=== PATIENT | male | born 1945 | race African-American/Black ===

== ENCOUNTER 2025-07-28 16:42 | Inpatient (IN) | payer MEDICARE, BC ==
[~2025-07-28] VITALS: Ht 170.2 cm; Wt 81.2 kg
[~2025-07-28 16:42] MED LIST: LISINOPRIL
[2025-07-28 16:44] VITALS: PULSE 144; RESP 18; O2SAT 100
[2025-07-28] MEDS ORDERED: MIDAZOLAM 100MG/100ML PMX 100 ML IV PRN (17:00)
[2025-07-28] MEDS ORDERED: VANCOMYCIN 1000MG/250ML 250 ML IV SCH (17:00)
[2025-07-28] MEDS: SODIUM CHLORIDE 0.9% 1,000 ML IV ONE ×3 (17:02→17:40)
[2025-07-28] MEDS: DILTIAZEM HCL 5MG/ML 5ML VIAL IV ONE (17:02)
[2025-07-28] MEDS: MIDAZOLAM 100MG/100ML PMX 100 ML IV PRN (17:15)
[2025-07-28] MEDS: LABETALOL 5MG/ML 4ML INJ IV ONE (17:38)
[2025-07-28] MEDS: PIPERACILLIN/TAZO 3.375G/50ML 50 ML IV SCH (17:40)
[2025-07-28] MEDS: VANCOMYCIN 1G PREMIX 200 ML IV SCH (17:55)
[2025-07-28 18:11] LABS: BG BASE EXCESS -9.0 mmol/L (-2.0-3.0); BG CARBOXYHEMOGLOBIN 0.3 % (0.5-1.5); BG DEOXYHEMOGLOBIN 0.3 % (0.0-5.0); BG FRACTION INSPIRED OXYGEN 100; BG HCO3 ACT 16.0 mmol/L (21.0-28.0); BG METHEMOGLOBIN 0.6 % (0.5-1.5); BG OXYGEN SATURATION 99.7 % (94.0-98.0); BG OXYHEMOGLOBIN 98.8 % (94.0-98.0); BG PCO2 31.7 mmHg (35.0-48.0); BG PEEP (cmH2O) 0 cmH2O; BG PH 7.320 (7.350-7.450); BG PO2 511.6 mmHg (83.0-108.0); BG SAMPLE SITE LEFT BRACHIAL; BG TIDAL VOLUME(mL) 500.0 mL; BG TOTAL HEMOGLOBIN 11.4 g/dL (13.5-17.5); BG VENT MODE VENT - AC; BG VENT RATE 18.0 set
[2025-07-28 18:39] LABS: BASOPHILS % 0.2 % (0.0-2.0); EOSINOPHILS % 0.2 % (0.0-5.0); HEMATOCRIT. 32.7 % (42.0-52.0); HEMOGLOBIN. 10.8 g/dL (14.0-18.0); LYMPHOCYTES % 12.1 % (20.0-50.0); MEAN PLATELET VOLUME 9.5 fl (7.4-10.4); MONOCYTES % 7.9 % (2.0-8.0); NEUTROPHILS % 79.6 % (40.0-76.0); PLATELET 222 x1000/uL (130-400); RED BLOOD CELL COUNT 3.38 mill/uL (4.7-6.1); RED CELL DISTRIBUTION WIDTH 14.6 % (11.6-14.6)
[2025-07-28 18:58] LABS: UREA NITROGEN BLOOD 76 mg/dL (9-23)
[2025-07-28 19:00] LABS: ASPARTATE AMINOTRANSFERASE 30 IU/L (<34)
[2025-07-28 19:01] LABS: BILIRUBIN DIRECT 0.1 mg/dL (<=3.0); BILIRUBIN TOTAL 0.5 mg/dL (0.1-1.0); PROTEIN TOTAL 6.4 g/dL (6.0-8.3)
[2025-07-28 19:02] LABS: CREATININE 10.4 mg/dL (0.6-1.3); T4 FREE 1.08 ng/dL (0.89-1.76)
[2025-07-28 19:03] LABS: TROPONIN I HIGH SENSITIVITY 1337 ng/L (3.0-53)
[2025-07-28] MEDS: KCL 10MEQ/50ML PREMIX 50 ML IV SCH ×2 (19:24→20:47)
[2025-07-28 20:07] VITALS: PULSE 70; RESP 20; O2SAT 99
[2025-07-28] MEDS: ENOXAPARIN 80MG/0.8ML SYR SUBCUT ONE (20:48)
[2025-07-28 22:08] VITALS: PULSE 87; RESP 16; O2SAT 99
[2025-07-28] MEDS ORDERED: IOHEXOL-350 100 ML BOTTLE ONE (23:08)
[2025-07-29] VITALS (70 sets, daily range): BP systolic 98–201; BP diastolic 69–158; PULSE 74–106; RESP 12–26; TEMP 36.5–37.3632; O2SAT 97–100
[2025-07-29] MEDS ORDERED: DIPHENHYDRAMINE 50MG/ML VIAL IV PRN (01:45)
[2025-07-29] MEDS ORDERED: ACETAMINOPHEN 650MG/20.3ML UDC GT PRN (01:45)
[2025-07-29] MEDS ORDERED: ONDANSETRON HCL 4MG/2ML INJ IV PRN (01:45)
[2025-07-29] MEDS: DEXT 5%/0.45% NACL 1000ML 1,000 ML IV SCH (03:52)
[2025-07-29] MEDS: MAGNESIUM 2 G PREMIX 50 ML IV SCH (03:52)
[2025-07-29] MEDS: HYDRALAZINE 20MG/ML VIAL IV PRN (03:53)
[2025-07-29] MEDS ORDERED: PROPOFOL 10MG/ML 100ML 100 ML IV PRN (05:30)
[2025-07-29 08:09] LABS: HEMATOCRIT. 33.7 % (42.0-52.0); HEMOGLOBIN. 11.2 g/dL (14.0-18.0); MEAN PLATELET VOLUME 9.1 fl (7.4-10.4); PLATELET 148 x1000/uL (130-400); RED BLOOD CELL COUNT 3.52 mill/uL (4.7-6.1); RED CELL DISTRIBUTION WIDTH 14.9 % (11.6-14.6)
[2025-07-29 08:21] LABS: UREA NITROGEN BLOOD 73 mg/dL (9-23)
[2025-07-29 08:22] LABS: CREATININE 10.7 mg/dL (0.6-1.3)
[2025-07-29] MEDS: NITROGLYCERIN 50MG PREMIX 250 ML IV PRN (08:56)
[2025-07-29 09:02] LABS: *AMPHETAMINES SCREEN URINE NEGATIVE (NEGATIVE); *BARBITURATES SCREEN URINE NEGATIVE (NEGATIVE); *BENZODIAZEPINES SCREEN URINE PRESUMPTIVE POSITIVE (NEGATIVE); *COCAINE SCREEN URINE NEGATIVE (NEGATIVE); CANNABINOID URINE SCREEN NEGATIVE (NEGATIVE); ECSTASY MDMA SCREEN URINE NEGATIVE (NEGATIVE); METHADONE URINE SCREEN NEGATIVE (NEGATIVE); OPIATES URINE SCREEN NEGATIVE (NEGATIVE); PHENCYCLIDINE URINE SCREEN NEGATIVE (NEGATIVE)
[2025-07-29 09:48] LABS: BG BASE EXCESS -8.2 mmol/L (-2.0-3.0); BG CARBOXYHEMOGLOBIN 0.3 % (0.5-1.5); BG DEOXYHEMOGLOBIN 1.5 % (0.0-5.0); BG FRACTION INSPIRED OXYGEN 30; BG HCO3 ACT 14.8 mmol/L (21.0-28.0); BG METHEMOGLOBIN 0.3 % (0.5-1.5); BG OXYGEN SATURATION 98.5 % (94.0-98.0); BG OXYHEMOGLOBIN 97.9 % (94.0-98.0); BG PCO2 23.7 mmHg (35.0-48.0); BG PH 7.413 (7.350-7.450); BG PO2 123.8 mmHg (83.0-108.0); BG SAMPLE SITE RIGHT RADIAL; BG TIDAL VOLUME(mL) 425.0 mL; BG TOTAL HEMOGLOBIN 11.0 g/dL (13.5-17.5); BG VENT MODE VENT - AC; BG VENT RATE 12.0 set
[2025-07-29] MEDS ORDERED: LIDOCAINE HCL 1% 10 MG/ML 10ML VIAL ONE (09:55)
[2025-07-29 11:21] LABS: BAND% 1.0 % (1.0-6.0); LYMPHOCYTES % MANUAL 17.0 % (20.0-50.0); MONOCYTES % MANUAL 15.0 % (2.0-8.0); NEUTROPHILS % MANUAL 67.0 % (45.0-75.0); PLATELET ESTIMATE NORMAL
[2025-07-29] MEDS: AMLODIPINE 5MG TABLET NG SCH (12:42)
[2025-07-29] MEDS: ASPIRIN 81MG TABLET NG SCH (12:42)
[2025-07-29] MEDS: MIDAZOLAM 100MG/100ML PMX 100 ML IV PRN (13:16)
[2025-07-29 17:04] LABS: CLARITY URINE CLOUDY (CLEAR); COLOR URINE YELLOW (YELLOW); GLUCOSE URINE TRACE (NEGATIVE); KETONES URINE NEGATIVE (NEGATIVE); LEUKOCYTE ESTERASE URINE NEGATIVE (NEGATIVE); NITRITE URINE NEGATIVE (NEGATIVE); OCCULT BLOOD URINE 3+ (NEGATIVE); PH URINE 5.5 (4.5-8.0); PROTEIN URINE 4+ (NEGATIVE); SPECIFIC GRAVITY URINE 1.024 (1.005-1.030); UROBILINOGEN URINE 0.2 E.U./dL (0.2-1.0)
[2025-07-29 17:18] LABS: INR 1.3
[2025-07-29 17:38] LABS: WBC URINE TNTC /hpf (0-2)
[2025-07-29 17:39] LABS: BACTERIA URINE 2+; RBC URINE 15-25 /hpf (0-2); SQUAMOUS EPITHELIAL CELL URINE 1+ /lpf (RARE/1+)
[2025-07-29] MEDS: PIPERACILLIN/TAZO 3.375G/50ML 50 ML IV SCH (17:56)
[2025-07-29 18:06] LABS: HEPATITIS A AB IGM NEGATIVE (Negative)
[2025-07-29 18:07] LABS: HEPATITIS B CORE AB IGM NEGATIVE (Negative); HEPATITIS C AB NON REACTIVE (Neg) (Negative)
[2025-07-29] MEDS: ATORVASTATIN CALCIUM 40MG TABLET NG SCH (20:35)
[2025-07-29] MEDS: ENOXAPARIN 80MG/0.8ML SYR SUBCUT SCH (20:35)
[2025-07-30] VITALS (106 sets, daily range): BP systolic 113–185; BP diastolic 69–165; PULSE 61–123; RESP 10–24; TEMP 36.3–37.3; O2SAT 0–100
[2025-07-30 00:52] LABS: BASOPHILS % 0.1 % (0.0-2.0); EOSINOPHILS % 0.0 % (0.0-5.0); HEMATOCRIT. 30.2 % (42.0-52.0); HEMOGLOBIN. 10.0 g/dL (14.0-18.0); LYMPHOCYTES % 9.6 % (20.0-50.0); MEAN PLATELET VOLUME 9.6 fl (7.4-10.4); MONOCYTES % 11.2 % (2.0-8.0); NEUTROPHILS % 79.1 % (40.0-76.0); PLATELET 123 x1000/uL (130-400); RED BLOOD CELL COUNT 3.19 mill/uL (4.7-6.1); RED CELL DISTRIBUTION WIDTH 15.3 % (11.6-14.6)
[2025-07-30 01:08] LABS: UREA NITROGEN BLOOD 46.0 mg/dL (9-23)
[2025-07-30 01:13] LABS: CREATININE 7.1 mg/dL (0.6-1.3)
[2025-07-30 06:45] LABS: BASOPHILS % 0.2 % (0.0-2.0); EOSINOPHILS % 0.0 % (0.0-5.0); HEMATOCRIT. 29.4 % (42.0-52.0); HEMOGLOBIN. 9.8 g/dL (14.0-18.0); LYMPHOCYTES % 10.5 % (20.0-50.0); MEAN PLATELET VOLUME 9.6 fl (7.4-10.4); MONOCYTES % 10.9 % (2.0-8.0); NEUTROPHILS % 78.4 % (40.0-76.0); PLATELET 126 x1000/uL (130-400); RED BLOOD CELL COUNT 3.08 mill/uL (4.7-6.1); RED CELL DISTRIBUTION WIDTH 15.0 % (11.6-14.6)
[2025-07-30 07:03] LABS: TRIGLYCERIDE 120 mg/dL (0-150); UREA NITROGEN BLOOD 46 mg/dL (9-23)
[2025-07-30 07:05] LABS: PHOSPHORUS 3.8 mg/dL (2.5-4.9)
[2025-07-30 07:18] LABS: CREATININE 7.4 mg/dL (0.6-1.3)
[2025-07-30 09:45] LABS: BG BASE EXCESS -4.4 mmol/L (-2.0-3.0); BG CARBOXYHEMOGLOBIN 0.1 % (0.5-1.5); BG DEOXYHEMOGLOBIN 2.1 % (0.0-5.0); BG FRACTION INSPIRED OXYGEN 30; BG HCO3 ACT 17.6 mmol/L (21.0-28.0); BG METHEMOGLOBIN 0.3 % (0.5-1.5); BG OXYGEN SATURATION 97.9 % (94.0-98.0); BG OXYHEMOGLOBIN 97.5 % (94.0-98.0); BG PCO2 23.8 mmHg (35.0-48.0); BG PH 7.487 (7.350-7.450); BG PO2 98.9 mmHg (83.0-108.0); BG SAMPLE SITE RIGHT RADIAL; BG TIDAL VOLUME(mL) 425.0 mL; BG TOTAL HEMOGLOBIN 10.5 g/dL (13.5-17.5); BG VENT MODE VENT - AC; BG VENT RATE 12.0 set
[2025-07-30] MEDS: PANTOPRAZOLE SODIUM 40 MG/VIAL IV SCH (09:55)
[2025-07-30] MEDS: METOPROLOL TARTRATE 50MG TABLET NG SCH (11:47)
[2025-07-30] MEDS: ISOSORBIDE DINITRATE 10MG TABLET NG SCH (12:36)
[2025-07-31] VITALS (97 sets, daily range): BP systolic 123–180; BP diastolic 65–116; PULSE 61–108; RESP 12–30; TEMP 36.1–37.4; O2SAT 99–100
[2025-07-31 06:22] LABS: UREA NITROGEN BLOOD 49 mg/dL (9-23)
[2025-07-31 06:23] LABS: PHOSPHORUS 5.2 mg/dL (2.5-4.9)
[2025-07-31 06:30] LABS: BASOPHILS % 0.2 % (0.0-2.0); EOSINOPHILS % 0.1 % (0.0-5.0); HEMATOCRIT. 26.1 % (42.0-52.0); HEMOGLOBIN. 8.9 g/dL (14.0-18.0); LYMPHOCYTES % 8.7 % (20.0-50.0); MEAN PLATELET VOLUME 9.1 fl (7.4-10.4); MONOCYTES % 9.9 % (2.0-8.0); NEUTROPHILS % 81.1 % (40.0-76.0); PLATELET 121 x1000/uL (130-400); RED BLOOD CELL COUNT 2.79 mill/uL (4.7-6.1); RED CELL DISTRIBUTION WIDTH 14.8 % (11.6-14.6)
[2025-07-31 06:46] LABS: CREATININE 7.7 mg/dL (0.6-1.3)
[2025-07-31 09:31] LABS: BG BASE EXCESS -7.1 mmol/L (-2.0-3.0); BG CARBOXYHEMOGLOBIN 0.3 % (0.5-1.5); BG DEOXYHEMOGLOBIN 1.7 % (0.0-5.0); BG FRACTION INSPIRED OXYGEN 30; BG HCO3 ACT 15.6 mmol/L (21.0-28.0); BG METHEMOGLOBIN 0.4 % (0.5-1.5); BG OXYGEN SATURATION 98.3 % (94.0-98.0); BG OXYHEMOGLOBIN 97.6 % (94.0-98.0); BG PCO2 24.1 mmHg (35.0-48.0); BG PH 7.430 (7.350-7.450); BG PO2 112.8 mmHg (83.0-108.0); BG SAMPLE SITE LEFT RADIAL; BG TIDAL VOLUME(mL) 425.0 mL; BG TOTAL HEMOGLOBIN 11.5 g/dL (13.5-17.5); BG VENT MODE VENT - AC; BG VENT RATE 12.0 set
[2025-07-31] MEDS: ISOSORBIDE DINITRATE 20MG TABLET NG SCH (12:57)
[2025-07-31] MEDS: METOPROLOL TARTRATE 25MG TABLET NG SCH (20:05)
[2025-07-31] MEDS: IPRATROPIUM/ALBUTEROL 0.5-3(2.5)MG/3ML NEB HHN PRN (20:36)
[2025-08-01] VITALS (70 sets, daily range): BP systolic 133–187; BP diastolic 65–107; PULSE 59–86; RESP 10–25; TEMP 36.6–37.1; O2SAT 100
[2025-08-01 06:31] LABS: HEMATOCRIT. 26.8 % (42.0-52.0); HEMOGLOBIN. 9.0 g/dL (14.0-18.0); MEAN PLATELET VOLUME 9.6 fl (7.4-10.4); PLATELET 147 x1000/uL (130-400); RED BLOOD CELL COUNT 2.83 mill/uL (4.7-6.1); RED CELL DISTRIBUTION WIDTH 15.0 % (11.6-14.6)
[2025-08-01 06:55] LABS: UREA NITROGEN BLOOD 31.0 mg/dL (9-23)
[2025-08-01 08:52] LABS: CREATININE 5.1 mg/dL (0.6-1.3)
[2025-08-01 09:24] LABS: BG BASE EXCESS -1.2 mmol/L (-2.0-3.0); BG CARBOXYHEMOGLOBIN 1.3 % (0.5-1.5); BG DEOXYHEMOGLOBIN 1.2 % (0.0-5.0); BG FRACTION INSPIRED OXYGEN 30; BG HCO3 ACT 21.7 mmol/L (21.0-28.0); BG METHEMOGLOBIN 0.4 % (0.5-1.5); BG OXYGEN SATURATION 98.8 % (94.0-98.0); BG OXYHEMOGLOBIN 97.1 % (94.0-98.0); BG PCO2 29.3 mmHg (35.0-48.0); BG PEEP (cmH2O) 0 cmH2O; BG PH 7.487 (7.350-7.450); BG PO2 109.1 mmHg (83.0-108.0); BG SAMPLE SITE LEFT RADIAL; BG TIDAL VOLUME(mL) 425.0 mL; BG TOTAL HEMOGLOBIN 8.9 g/dL (13.5-17.5); BG VENT MODE VENT - AC; BG VENT RATE 12.0 set
[2025-08-01] MEDS: HYDRALAZINE 20MG/ML VIAL IV NR (14:19)
[2025-08-01] MEDS: HYDRALAZINE HCL 25MG TABLET PO SCH (14:21)
[2025-08-01] MEDS: ENOXAPARIN 80MG/0.8ML SYR SUBCUT SCH (20:07)
[2025-08-01 20:39] LABS: LYMPHOCYTES % MANUAL 13.0 % (20.0-50.0); MONOCYTES % MANUAL 12.0 % (2.0-8.0); NEUTROPHILS % MANUAL 75.0 % (45.0-75.0); PLATELET ESTIMATE NORMAL
[2025-08-02] VITALS (78 sets, daily range): BP systolic 121–184; BP diastolic 64–107; PULSE 59–88; RESP 10–24; TEMP 36.3918–36.7; O2SAT 94–100
[2025-08-02 06:41] LABS: HEMATOCRIT. 26.3 % (42.0-52.0); HEMOGLOBIN. 8.7 g/dL (14.0-18.0); MEAN PLATELET VOLUME 9.1 fl (7.4-10.4); PLATELET 162 x1000/uL (130-400); RED BLOOD CELL COUNT 2.69 mill/uL (4.7-6.1); RED CELL DISTRIBUTION WIDTH 15.0 % (11.6-14.6)
[2025-08-02 06:52] LABS: UREA NITROGEN BLOOD 31.0 mg/dL (9-23)
[2025-08-02 07:18] LABS: CREATININE 5.7 mg/dL (0.6-1.3)
[2025-08-02 08:44] LABS: BG BASE EXCESS -3.1 mmol/L (-2.0-3.0); BG CARBOXYHEMOGLOBIN 0.3 % (0.5-1.5); BG DEOXYHEMOGLOBIN 1.5 % (0.0-5.0); BG FRACTION INSPIRED OXYGEN 30; BG HCO3 ACT 19.4 mmol/L (21.0-28.0); BG METHEMOGLOBIN 0.4 % (0.5-1.5); BG OXYGEN SATURATION 98.5 % (94.0-98.0); BG OXYHEMOGLOBIN 97.8 % (94.0-98.0); BG PCO2 26.7 mmHg (35.0-48.0); BG PH 7.480 (7.350-7.450); BG PO2 114.0 mmHg (83.0-108.0); BG SAMPLE SITE LEFT RADIAL; BG TIDAL VOLUME(mL) 425.0 mL; BG TOTAL HEMOGLOBIN 9.8 g/dL (13.5-17.5); BG VENT MODE VENT - AC; BG VENT RATE 12.0 set
[2025-08-02] MEDS: AMLODIPINE 10MG TABLET NG SCH (09:22)
[2025-08-02] MEDS: POTASSIUM CHLORIDE 20MEQ/PACKET GT NR (09:24)
[2025-08-02] MEDS: MINOXIDIL 2.5MG TABLET NG SCH (10:39)
[2025-08-02 12:35] LABS: BG BASE EXCESS -4.4 mmol/L (-2.0-3.0); BG CARBOXYHEMOGLOBIN 0.4 % (0.5-1.5); BG DEOXYHEMOGLOBIN 2.2 % (0.0-5.0); BG FRACTION INSPIRED OXYGEN 30; BG HCO3 ACT 18.4 mmol/L (21.0-28.0); BG METHEMOGLOBIN 0.5 % (0.5-1.5); BG OXYGEN SATURATION 97.8 % (94.0-98.0); BG OXYHEMOGLOBIN 96.9 % (94.0-98.0); BG PCO2 26.1 mmHg (35.0-48.0); BG PEEP (cmH2O) 0 cmH2O; BG PH 7.465 (7.350-7.450); BG PO2 93.3 mmHg (83.0-108.0); BG SAMPLE SITE LEFT RADIAL; BG TOTAL HEMOGLOBIN 9.2 g/dL (13.5-17.5); BG VENT MODE VENT - CPAP
[2025-08-02 14:03] LABS: BAND% 1.0 % (1.0-6.0); EOSINOPHILS % MANUAL 1.0 % (0.0-5.0); LYMPHOCYTES % MANUAL 7.0 % (20.0-50.0); MONOCYTES % MANUAL 6.0 % (2.0-8.0); NEUTROPHILS % MANUAL 85.0 % (45.0-75.0); PLATELET ESTIMATE NORMAL
[2025-08-02] MEDS: HYDRALAZINE HCL 50MG TABLET PO SCH (14:56)
[2025-08-03] VITALS (61 sets, daily range): BP systolic 104–165; BP diastolic 58–116; PULSE 54–81; RESP 0–19; TEMP 36.1–36.6; O2SAT 94–99
[2025-08-03 07:07] LABS: HEMATOCRIT. 27.7 % (42.0-52.0); HEMOGLOBIN. 9.1 g/dL (14.0-18.0); MEAN PLATELET VOLUME 8.9 fl (7.4-10.4); PLATELET 213 x1000/uL (130-400); RED BLOOD CELL COUNT 2.91 mill/uL (4.7-6.1); RED CELL DISTRIBUTION WIDTH 14.7 % (11.6-14.6)
[2025-08-03 07:17] LABS: CREATININE 4.8 mg/dL (0.6-1.3); UREA NITROGEN BLOOD 26.0 mg/dL (9-23)
[2025-08-03] MEDS: ENOXAPARIN 30MG/0.3ML SYR SUBCUT SCH (08:32)
[2025-08-03] MEDS: POTASSIUM CHLORIDE 20MEQ/PACKET PO SCH (08:34)
[2025-08-03 17:02] LABS: LYMPHOCYTES % MANUAL 3.0 % (20.0-50.0); MONOCYTES % MANUAL 5.0 % (2.0-8.0); NEUTROPHILS % MANUAL 92.0 % (45.0-75.0); PLATELET ESTIMATE NORMAL
[2025-08-04] VITALS (100 sets, daily range): BP systolic 87–163; BP diastolic 47–96; PULSE 56–95; RESP 9–25; TEMP 35.8–37.4; O2SAT 95–100
[2025-08-04 08:13] LABS: HEMATOCRIT. 28.4 % (42.0-52.0); HEMOGLOBIN. 9.8 g/dL (14.0-18.0); MEAN PLATELET VOLUME 8.4 fl (7.4-10.4); PLATELET 263 x1000/uL (130-400); RED BLOOD CELL COUNT 3.02 mill/uL (4.7-6.1); RED CELL DISTRIBUTION WIDTH 14.4 % (11.6-14.6)
[2025-08-04 08:35] LABS: UREA NITROGEN BLOOD 33.0 mg/dL (9-23)
[2025-08-04 09:18] LABS: CREATININE 5.5 mg/dL (0.6-1.3)
[2025-08-04 11:03] LABS: BAND% 1.0 % (1.0-6.0); BASOPHILS % MANUAL 1.0 % (0.0-2.0); LYMPHOCYTES % MANUAL 5.0 % (20.0-50.0); MONOCYTES % MANUAL 7.0 % (2.0-8.0); NEUTROPHILS % MANUAL 86.0 % (45.0-75.0)
[2025-08-04 11:04] LABS: PLATELET ESTIMATE NORMAL
[2025-08-04 20:22] LABS: HEMATOCRIT. 29.3 % (42.0-52.0); HEMOGLOBIN. 9.6 g/dL (14.0-18.0); MEAN PLATELET VOLUME 8.2 fl (7.4-10.4); PLATELET 295 x1000/uL (130-400); RED BLOOD CELL COUNT 3.09 mill/uL (4.7-6.1); RED CELL DISTRIBUTION WIDTH 14.9 % (11.6-14.6)
[2025-08-04 20:37] LABS: PHOSPHORUS 4.1 mg/dL (2.5-4.9)
[2025-08-04] MEDS: METOPROLOL TARTRATE 25MG TABLET NG SCH (21:32)
[2025-08-04 23:15] LABS: LYMPHOCYTES % MANUAL 6.0 % (20.0-50.0); MONOCYTES % MANUAL 14.0 % (2.0-8.0); NEUTROPHILS % MANUAL 80.0 % (45.0-75.0); PLATELET ESTIMATE NORMAL
[2025-08-05] VITALS (62 sets, daily range): BP systolic 117–160; BP diastolic 53–73; PULSE 73–95; RESP 9–23; TEMP 36.5–37.3; O2SAT 94–99
[2025-08-05 06:47] LABS: HEMATOCRIT. 27.8 % (42.0-52.0); HEMOGLOBIN. 9.3 g/dL (14.0-18.0); MEAN PLATELET VOLUME 8.1 fl (7.4-10.4); PLATELET 362 x1000/uL (130-400); RED BLOOD CELL COUNT 2.91 mill/uL (4.7-6.1); RED CELL DISTRIBUTION WIDTH 14.6 % (11.6-14.6)
[2025-08-05 07:05] LABS: UREA NITROGEN BLOOD 28 mg/dL (9-23)
[2025-08-05 07:06] LABS: PHOSPHORUS 4.5 mg/dL (2.5-4.9)
[2025-08-05 07:42] LABS: CREATININE 5.3 mg/dL (0.6-1.3)
[2025-08-05] MEDS ORDERED: DORZ10DR32 EACHEYE (09:33)
[2025-08-05] MEDS ORDERED: BRIM10DR18 (09:33)
[2025-08-05 16:46] LABS: LYMPHOCYTES % MANUAL 7.0 % (20.0-50.0); MONOCYTES % MANUAL 10.0 % (2.0-8.0); NEUTROPHILS % MANUAL 83.0 % (45.0-75.0); PLATELET ESTIMATE NORMAL
[2025-08-05] MEDS: CARVEDILOL 3.125 MG TABLET PO SCH (23:45)
[2025-08-06] VITALS: BP 138/60; PULSE 83; RESP 18; TEMP 36.5; O2SAT 99
[2025-08-06 04:00] VITALS: BP 152/69; PULSE 80; RESP 18; TEMP 36.7; O2SAT 98
[2025-08-06 08:00] VITALS: BP_SYST 149; BP_DIAS 6; BP_DIAS 62; PULSE 89; RESP 18; TEMP 37.5; O2SAT 98
[2025-08-06 12:22] VITALS: BP 138/68; PULSE 79; RESP 18; TEMP 36.9; O2SAT 99
[2025-08-06] MEDS: BRIMONIDINE 0.2% OPHTH DROPS 5ML BOTHEYE SCH (12:50)
[2025-08-06] MEDS: DORZOLAM/TIMOLOL 2%/0.5% OPHTH DROPS 10ML BOTHEYE SCH (12:51)
[2025-08-06 13:35] LABS: UREA NITROGEN BLOOD 33.0 mg/dL (9-23)
[2025-08-06 13:37] LABS: PHOSPHORUS 5.3 mg/dL (2.5-4.9)
[2025-08-06 14:19] LABS: CREATININE 6.4 mg/dL (0.6-1.3)
[2025-08-06 16:00] VITALS: BP 133/57; PULSE 80; RESP 18; TEMP 36.6; O2SAT 98
[2025-08-06 20:00] VITALS: BP 158/74; PULSE 79; RESP 20; TEMP 37; O2SAT 98
[2025-08-07] VITALS (11 sets, daily range): BP systolic 127–175; BP diastolic 54–104; PULSE 68–89; RESP 18–20; TEMP 35.8–37; O2SAT 98–99
[2025-08-07 06:24] LABS: UREA NITROGEN BLOOD 41.0 mg/dL (9-23)
[2025-08-07 06:27] LABS: CREATININE 6.7 mg/dL (0.6-1.3)
[2025-08-07 06:37] LABS: HEMATOCRIT. 26.7 % (42.0-52.0); HEMOGLOBIN. 8.9 g/dL (14.0-18.0); MEAN PLATELET VOLUME 7.4 fl (7.4-10.4); PLATELET 459 x1000/uL (130-400); RED BLOOD CELL COUNT 2.80 mill/uL (4.7-6.1); RED CELL DISTRIBUTION WIDTH 14.8 % (11.6-14.6)
[2025-08-07] MEDS: POTASSIUM CHLORIDE 20MEQ/PACKET NG SCH (12:13)
[2025-08-07 19:54] LABS: EOSINOPHILS % MANUAL 2.0 % (0.0-5.0); LYMPHOCYTES % MANUAL 7.0 % (20.0-50.0); MONOCYTES % MANUAL 10.0 % (2.0-8.0); NEUTROPHILS % MANUAL 81.0 % (45.0-75.0); PLATELET ESTIMATE INCREASED
[2025-08-07] MEDS: EPOETIN ALFA-EPBX 4,000 UNITS/ML VIAL SUBCUT SCH (22:17)
[2025-08-08] VITALS: BP 159/92; PULSE 89; RESP 18; TEMP 36.2; O2SAT 98
[2025-08-08 04:00] VITALS: BP 173/62; PULSE 94; RESP 19; TEMP 36.7; O2SAT 96
[2025-08-08 12:00] VITALS: BP 128/75; PULSE 69; RESP 18; TEMP 36.8; O2SAT 96
[2025-08-08] MEDS: KCL 20MEQ/100ML PREMIX 100 ML IV SCH ×2 (14:44→22:20)
[2025-08-08 16:00] VITALS: BP 160/69; PULSE 85; RESP 20; TEMP 36.8; O2SAT 96
[2025-08-08 17:53] LABS: HEPATITIS A AB IGM NEGATIVE (Negative)
[2025-08-08 17:54] LABS: HEPATITIS B CORE AB IGM NEGATIVE (Negative)
[2025-08-08 17:55] LABS: HEPATITIS C AB NON REACTIVE (Neg) (Negative)
[2025-08-08 20:00] VITALS: BP 129/63; PULSE 89; RESP 19; TEMP 36.7; O2SAT 98
[2025-08-09] VITALS (11 sets, daily range): BP systolic 121–175; BP diastolic 60–84; PULSE 66–90; RESP 18–21; TEMP 36–36.9; O2SAT 97–99
[2025-08-09 07:23] LABS: INR 1.0
[2025-08-09 07:35] LABS: BILIRUBIN TOTAL 0.2 mg/dL (0.1-1.0)
[2025-08-09 07:36] LABS: UREA NITROGEN BLOOD 40 mg/dL (9-23)
[2025-08-09 07:37] LABS: BASOPHILS % 0.2 % (0.0-2.0); EOSINOPHILS % 0.5 % (0.0-5.0); HEMATOCRIT. 24.6 % (42.0-52.0); HEMOGLOBIN. 8.3 g/dL (14.0-18.0); LYMPHOCYTES % 7.2 % (20.0-50.0); MEAN PLATELET VOLUME 7.3 fl (7.4-10.4); MONOCYTES % 14.8 % (2.0-8.0); NEUTROPHILS % 77.3 % (40.0-76.0); PLATELET 505 x1000/uL (130-400); RED BLOOD CELL COUNT 2.58 mill/uL (4.7-6.1); RED CELL DISTRIBUTION WIDTH 14.5 % (11.6-14.6)
[2025-08-09 07:38] LABS: ASPARTATE AMINOTRANSFERASE 42 IU/L (<34); BILIRUBIN DIRECT < 0.1 mg/dL (<=3.0); PHOSPHORUS 4.1 mg/dL (2.5-4.9); PROTEIN TOTAL 5.8 g/dL (6.0-8.3)
[2025-08-09 07:48] LABS: FOLIC ACID (FOLATE) SERUM 9.90 ng/mL (>5.38)
[2025-08-09 07:49] LABS: VITAMIN B12 SERUM 1005 pg/mL (211-911)
[2025-08-09 10:12] LABS: CREATININE 6.3 mg/dL (0.6-1.3)
[2025-08-09] MEDS: IRON SUCROSE COMPLEX 100 MG/5 ML ML IV SCH (11:50)
[2025-08-10] VITALS: BP 151/67; PULSE 89; RESP 19; TEMP 36.4; O2SAT 98
[2025-08-10 04:00] VITALS: BP 164/69; PULSE 100; RESP 19; TEMP 36.5; O2SAT 98
[2025-08-10 08:41] VITALS: BP 170/74; PULSE 94; RESP 20; TEMP 37.4; O2SAT 98
[2025-08-10 12:37] VITALS: BP 155/76; PULSE 97; RESP 20; TEMP 36.9; O2SAT 98
[2025-08-10 16:00] VITALS: BP 152/76; PULSE 83; RESP 16; TEMP 36.8; O2SAT 99
[2025-08-10 20:00] VITALS: BP 143/71; PULSE 85; RESP 19; TEMP 36.9; O2SAT 94
[2025-08-11] VITALS (9 sets, daily range): BP systolic 122–170; BP diastolic 66–85; PULSE 68–92; RESP 16–20; TEMP 36.114–37.2; O2SAT 97–100
[2025-08-11] MEDS: CEFAZOLIN 1000MG PREMIX 50 ML IV SCH (10:00)
[2025-08-11] MEDS: IRON SUCROSE COMPLEX 100 MG/5 ML ML IV SCH (14:08)
[2025-08-12] VITALS: BP 143/72; PULSE 89; RESP 16; TEMP 36.8; O2SAT 99
[2025-08-12 04:00] VITALS: BP 150/80; PULSE 90; RESP 16; TEMP 36.9; O2SAT 99
[2025-08-12 08:00] VITALS: BP 166/82; PULSE 93; RESP 20; TEMP 39; O2SAT 100
[2025-08-12 12:00] VITALS: BP 150/84; PULSE 89; RESP 20; TEMP 37.8; O2SAT 100
[2025-08-12 16:00] VITALS: BP 158/78; PULSE 87; RESP 19; TEMP 37.6; O2SAT 100
[2025-08-12 17:15] LABS: HEMATOCRIT. 24.5 % (42.0-52.0); HEMOGLOBIN. 8.3 g/dL (14.0-18.0); MEAN PLATELET VOLUME 7.3 fl (7.4-10.4); PLATELET 568 x1000/uL (130-400); RED BLOOD CELL COUNT 2.54 mill/uL (4.7-6.1); RED CELL DISTRIBUTION WIDTH 14.8 % (11.6-14.6)
[2025-08-12 17:34] LABS: LYMPHOCYTES % MANUAL 14.0 % (20.0-50.0); MONOCYTES % MANUAL 13.0 % (2.0-8.0); NEUTROPHILS % MANUAL 73.0 % (45.0-75.0); NUCLEATED RED BLOOD CELLS 5 /100 WBC; PLATELET ESTIMATE SLIGHTLY INCREASED
[2025-08-12 17:35] LABS: UREA NITROGEN BLOOD 43.0 mg/dL (9-23)
[2025-08-12 17:40] LABS: CREATININE 5.6 mg/dL (0.6-1.3)
[2025-08-12 20:00] VITALS: BP 157/80; PULSE 88; RESP 19; TEMP 36.3; O2SAT 97
[2025-08-13] VITALS: BP 161/82; PULSE 82; RESP 16; TEMP 36.4; O2SAT 97
[2025-08-13 04:00] VITALS: BP 150/82; PULSE 90; RESP 16; TEMP 36.3; O2SAT 96
[2025-08-13 08:00] VITALS: BP 168/79; PULSE 90; RESP 18; TEMP 37.2; O2SAT 100
[2025-08-13 10:03] LABS: BASOPHILS % 0.4 % (0.0-2.0); EOSINOPHILS % 0.8 % (0.0-5.0); HEMATOCRIT. 25.1 % (42.0-52.0); HEMOGLOBIN. 8.3 g/dL (14.0-18.0); LYMPHOCYTES % 8.7 % (20.0-50.0); MEAN PLATELET VOLUME 7.2 fl (7.4-10.4); MONOCYTES % 12.9 % (2.0-8.0); NEUTROPHILS % 77.2 % (40.0-76.0); PLATELET 614 x1000/uL (130-400); RED BLOOD CELL COUNT 2.55 mill/uL (4.7-6.1); RED CELL DISTRIBUTION WIDTH 15.0 % (11.6-14.6)
[2025-08-13 10:18] LABS: UREA NITROGEN BLOOD 47.0 mg/dL (9-23)
[2025-08-13 10:41] LABS: CREATININE 6.1 mg/dL (0.6-1.3)
[2025-08-13] MEDS: ACETAMINOPHEN 650MG/20.3ML UDC GT PRN (11:25)
[2025-08-13 12:00] VITALS: BP 166/82; PULSE 91; RESP 18; TEMP 36.9; O2SAT 93
[2025-08-13] MEDS: SODIUM CHLORIDE 0.45% 1,000 ML IV SCH (14:30)
[2025-08-13 16:00] VITALS: BP 138/70; RESP 18; TEMP 36.8; O2SAT 98
[2025-08-13 20:00] VITALS: BP 168/79; PULSE 83; RESP 18; TEMP 37.1; O2SAT 96
[2025-08-14] VITALS: BP 155/60; PULSE 94; RESP 20; TEMP 36.7; O2SAT 96
[2025-08-14 04:00] VITALS: BP 159/82; PULSE 83; RESP 20; TEMP 36.8; O2SAT 97
[2025-08-14 07:06] LABS: BASOPHILS % 0.3 % (0.0-2.0); EOSINOPHILS % 0.8 % (0.0-5.0); HEMATOCRIT. 23.2 % (42.0-52.0); HEMOGLOBIN. 7.7 g/dL (14.0-18.0); LYMPHOCYTES % 7.6 % (20.0-50.0); MEAN PLATELET VOLUME 7.3 fl (7.4-10.4); MONOCYTES % 12.0 % (2.0-8.0); NEUTROPHILS % 79.3 % (40.0-76.0); PLATELET 539 x1000/uL (130-400); RED BLOOD CELL COUNT 2.39 mill/uL (4.7-6.1); RED CELL DISTRIBUTION WIDTH 14.8 % (11.6-14.6)
[2025-08-14 07:18] LABS: INR 1.0
[2025-08-14 07:35] LABS: UREA NITROGEN BLOOD 64 mg/dL (9-23)
[2025-08-14 07:36] LABS: ASPARTATE AMINOTRANSFERASE 39 IU/L (<34)
[2025-08-14 07:37] LABS: BILIRUBIN TOTAL 0.3 mg/dL (0.1-1.0); PROTEIN TOTAL 5.9 g/dL (6.0-8.3)
[2025-08-14 08:00] VITALS: BP 171/77; PULSE 78; RESP 18; TEMP 36.8; O2SAT 97
[2025-08-14 08:02] LABS: CREATININE 6.5 mg/dL (0.6-1.3)
[2025-08-14 12:00] VITALS: BP 167/75; PULSE 70; RESP 18; TEMP 36.7; O2SAT 100
[2025-08-14] MEDS ORDERED: PROPOFOL 200MG/20ML VIAL IV ONE (15:28)
[2025-08-14] MEDS: CEFAZOLIN 1000MG PREMIX 50 ML IV SCH (15:30)
[2025-08-14] MEDS ORDERED: ONDANSETRON HCL 4MG/2ML INJ IV PRN (16:00)
[2025-08-14] MEDS ORDERED: HYDROMORPHONE HCL/PF 1MG/ML INJ IV PRN (16:00)
[2025-08-14] MEDS ORDERED: ACETAMINOPHEN 1,000MG/100ML PREMIX IV PRN (16:00)
[2025-08-14] MEDS ORDERED: LABETALOL 5MG/ML 4ML INJ IV PRN (16:00)
[2025-08-14] MEDS ORDERED: HYDRALAZINE 20MG/ML VIAL IV PRN (16:00)
[2025-08-14] MEDS ORDERED: FAMOTIDINE 20MG/2ML VIAL IV PRN (16:00)
[2025-08-14] MEDS ORDERED: MEPERIDINE HCL/PF 25MG/ML CPJ IV PRN (16:00)
[2025-08-14] MEDS ORDERED: ACETAMINOPHEN 1000MG/100ML 100 ML IV PRN (16:15)
[2025-08-14] MEDS: HYDRALAZINE 20MG/ML VIAL IV PRN (16:23)
[2025-08-14] MEDS ORDERED: FENTANYL CITRATE/PF 50MCG/ML 2ML VIAL ONE (16:51)
[2025-08-14] MEDS ORDERED: MIDAZOLAM HCL 2 MG/2 ML VIAL ONE (16:52)
[2025-08-14 20:00] VITALS: BP 152/89; PULSE 82; RESP 18; TEMP 37; O2SAT 97
[2025-08-15] VITALS (21 sets, daily range): BP systolic 145–182; BP diastolic 60–94; PULSE 76–95; RESP 18–20; TEMP 36.114–36.9; O2SAT 89–100
[2025-08-15] MEDS: METOCLOPRAMIDE HCL 10MG/2ML VIAL IV SCH (05:56)
[2025-08-15 09:39] LABS: HEMATOCRIT. 26.9 % (42.0-52.0); HEMOGLOBIN. 9.1 g/dL (14.0-18.0); MEAN PLATELET VOLUME 7.1 fl (7.4-10.4); PLATELET 524 x1000/uL (130-400); RED BLOOD CELL COUNT 2.79 mill/uL (4.7-6.1); RED CELL DISTRIBUTION WIDTH 14.9 % (11.6-14.6)
[2025-08-15 10:01] LABS: UREA NITROGEN BLOOD 35.0 mg/dL (9-23)
[2025-08-15 10:05] LABS: CREATININE 4.2 mg/dL (0.6-1.3)
[2025-08-15] MEDS ORDERED: LIDOCAINE HCL 1% 10 MG/ML 10ML VIAL ONE (12:49)
[2025-08-15] MEDS ORDERED: CEFAZOLIN 1000MG PREMIX 50 ML IV ONE (12:49)
[2025-08-15] MEDS: CEFAZOLIN 1000MG PREMIX 50 ML IV SCH (15:00)
[2025-08-15 21:19] LABS: LYMPHOCYTES % MANUAL 11.0 % (20.0-50.0); MONOCYTES % MANUAL 6.0 % (2.0-8.0); NEUTROPHILS % MANUAL 83.0 % (45.0-75.0); PLATELET ESTIMATE INCREASED
[2025-08-16] VITALS: BP 174/95; PULSE 86; RESP 18; TEMP 36.9; TEMP 37; O2SAT 97
[2025-08-16 04:00] VITALS: BP 178/90; PULSE 82; RESP 16; TEMP 36.7; O2SAT 98
[2025-08-16 08:00] VITALS: BP 186/83; PULSE 91; RESP 19; TEMP 36.9; O2SAT 99
[2025-08-16] MEDS: FERROUS SULFATE 300MG/5ML UDC GT SCH (09:22)
[2025-08-16] MEDS: ASCORBIC ACID 500 MG TABLET GT SCH (09:22)
[2025-08-16 12:00] VITALS: BP 162/87; PULSE 99; RESP 20; TEMP 36.8; O2SAT 100
[2025-08-16 13:35] LABS: BASOPHILS % 0.2 % (0.0-2.0); EOSINOPHILS % 0.9 % (0.0-5.0); HEMATOCRIT. 26.4 % (42.0-52.0); HEMOGLOBIN. 8.8 g/dL (14.0-18.0); LYMPHOCYTES % 8.4 % (20.0-50.0); MEAN PLATELET VOLUME 6.8 fl (7.4-10.4); MONOCYTES % 14.3 % (2.0-8.0); NEUTROPHILS % 76.2 % (40.0-76.0); PLATELET 499 x1000/uL (130-400); RED BLOOD CELL COUNT 2.73 mill/uL (4.7-6.1); RED CELL DISTRIBUTION WIDTH 14.7 % (11.6-14.6)
[2025-08-16 13:51] LABS: UREA NITROGEN BLOOD 53.0 mg/dL (9-23)
[2025-08-16 14:23] LABS: CREATININE 5.4 mg/dL (0.6-1.3)
[2025-08-16 16:00] VITALS: BP 158/72; PULSE 100; RESP 20; TEMP 36.7; O2SAT 100
[2025-08-16] MEDS: HYDRALAZINE HCL 100MG TABLET PEG SCH (16:24)
[2025-08-16 20:00] VITALS: BP 130/67; PULSE 93; RESP 20; TEMP 36.4; O2SAT 98
[2025-08-17] VITALS (11 sets, daily range): BP systolic 145–191; BP diastolic 75–90; PULSE 75–89; RESP 18–19; TEMP 36.2–36.9; O2SAT 96–100
[2025-08-17] MEDS: HYDRALAZINE 10 MG in SODIUM CHLORIDE 0.9% 49.5 ML IV PRN (04:03)
[2025-08-17 06:51] LABS: HEMATOCRIT. 27.9 % (42.0-52.0); HEMOGLOBIN. 9.3 g/dL (14.0-18.0); MEAN PLATELET VOLUME 6.9 fl (7.4-10.4); PLATELET 460 x1000/uL (130-400); RED BLOOD CELL COUNT 2.91 mill/uL (4.7-6.1); RED CELL DISTRIBUTION WIDTH 14.8 % (11.6-14.6)
[2025-08-17 07:09] LABS: UREA NITROGEN BLOOD 58.0 mg/dL (9-23)
[2025-08-17 08:45] LABS: CREATININE 5.8 mg/dL (0.6-1.3)
[2025-08-17 11:03] LABS: BAND% 3.0 % (1.0-6.0); EOSINOPHILS % MANUAL 1.0 % (0.0-5.0); LYMPHOCYTES % MANUAL 9.0 % (20.0-50.0); MONOCYTES % MANUAL 12.0 % (2.0-8.0); NEUTROPHILS % MANUAL 75.0 % (45.0-75.0); PLATELET ESTIMATE INCREASED
[2025-08-17] MEDS: CLONIDINE 0.1MG TABLET PO PRN (23:34)
[2025-08-18] VITALS (12 sets, daily range): BP systolic 128–186; BP diastolic 60–84; PULSE 68–81; RESP 17–19; TEMP 36.2–36.6; O2SAT 98–99
[2025-08-18 07:26] LABS: UREA NITROGEN BLOOD 42.0 mg/dL (9-23)
[2025-08-18 08:54] LABS: CREATININE 5.5 mg/dL (0.6-1.3)
[2025-08-18 10:02] LABS: BASOPHILS % 0.2 % (0.0-2.0); EOSINOPHILS % 1.4 % (0.0-5.0); HEMATOCRIT. 26.1 % (42.0-52.0); HEMOGLOBIN. 8.5 g/dL (14.0-18.0); LYMPHOCYTES % 10.2 % (20.0-50.0); MEAN PLATELET VOLUME 7.2 fl (7.4-10.4); MONOCYTES % 14.1 % (2.0-8.0); NEUTROPHILS % 74.1 % (40.0-76.0); PLATELET 439 x1000/uL (130-400); RED BLOOD CELL COUNT 2.70 mill/uL (4.7-6.1); RED CELL DISTRIBUTION WIDTH 14.7 % (11.6-14.6)
[2025-08-18] MEDS ORDERED: ASPI-1160 NG (10:06)
[2025-08-18] MEDS ORDERED: HYDR100T31 PEG (10:06)
[2025-08-18] MEDS ORDERED: ASCO500T20 GT (10:06)
[2025-08-18] MEDS ORDERED: DORZ10DR32 BOTHEYE (10:06)
[2025-08-18] MEDS ORDERED: COR12 PO (10:06)
[2025-08-18] MEDS ORDERED: DOXA-14 PEG (10:06)
[2025-08-18] MEDS ORDERED: BRIM.2 BOTHEYE (10:06)
[2025-08-18] MEDS ORDERED: AMLO10TA80 NG (10:06)
[2025-08-18] MEDS ORDERED: CLON0.1T PO (10:06)
[2025-08-18] MEDS ORDERED: ISOS20TA8 NG (10:06)
[2025-08-18] MEDS ORDERED: LIP40 NG (10:06)
[2025-08-18] MEDS: ISOSORBIDE DINITRATE 20MG TABLET NG SCH (10:31)
[2025-08-18] MEDS: CARVEDILOL 12.5MG TABLET PO SCH (10:32)
[2025-08-18] MEDS: LISINOPRIL 10MG TABLET PEG SCH (10:38)
[2025-08-18] MEDS: DOXAZOSIN MESYLATE 2MG TABLET PEG SCH (20:21)
== END 2025-08-18 22:20 | DRG 207 ==
LOC: ER 16:42 → CVICU 19:12 → EDBEDREQ 19:50 → EDBEDREQTM 19:50 → ENRESERV 07-29 01:36 → 8WST 08-05 17:28 → 7EST 08-16 01:15
PROVIDERS: ADMIT Internal Medicine; ATTEND Internal Medicine
PROC: 5A1955Z Respiratory Ventilation, Greater than 96 Consecutive Hours (ICD-10-PCS; principal; 2025-07-28)
PROC: 0BH17EZ Insertion of Endotracheal Airway into Trachea, Via Natural or Artificial Opening (ICD-10-PCS; 2025-07-28)
PROC: 5A1D70Z Performance of Urinary Filtration, Intermittent, Less than 6 Hours Per Day (ICD-10-PCS; 2025-07-29)
PROC: 06HY33Z Insertion of Infusion Device into Lower Vein, Percutaneous Approach (ICD-10-PCS; 2025-07-29)
PROC: B54BZZA Ultrasonography of Right Lower Extremity Veins, Guidance (ICD-10-PCS; 2025-07-29)
PROC: 5A1D70Z Performance of Urinary Filtration, Intermittent, Less than 6 Hours Per Day (ICD-10-PCS; 2025-07-31)
PROC: 5A1D70Z Performance of Urinary Filtration, Intermittent, Less than 6 Hours Per Day (ICD-10-PCS; 2025-08-02)
PROC: 5A1D70Z Performance of Urinary Filtration, Intermittent, Less than 6 Hours Per Day (ICD-10-PCS; 2025-08-04)
PROC: 5A1D70Z Performance of Urinary Filtration, Intermittent, Less than 6 Hours Per Day (ICD-10-PCS; 2025-08-07)
PROC: 4A00X4Z Measurement of Central Nervous Electrical Activity, External Approach (ICD-10-PCS; 2025-08-07)
PROC: 5A1D70Z Performance of Urinary Filtration, Intermittent, Less than 6 Hours Per Day (ICD-10-PCS; 2025-08-09)
PROC: 5A1D70Z Performance of Urinary Filtration, Intermittent, Less than 6 Hours Per Day (ICD-10-PCS; 2025-08-11)
PROC: 0DB68ZX Excision of Stomach, Via Natural or Artificial Opening Endoscopic, Diagnostic (ICD-10-PCS; 2025-08-14)
PROC: 0DB78ZX Excision of Stomach, Pylorus, Via Natural or Artificial Opening Endoscopic, Diagnostic (ICD-10-PCS; 2025-08-14)
PROC: 0DH63UZ Insertion of Feeding Device into Stomach, Percutaneous Approach (ICD-10-PCS; 2025-08-14)
PROC: 5A1D70Z Performance of Urinary Filtration, Intermittent, Less than 6 Hours Per Day (ICD-10-PCS; 2025-08-15)
PROC: 0JH63XZ Insertion of Tunneled Vascular Access Device into Chest Subcutaneous Tissue and Fascia, Percutaneous Approach (ICD-10-PCS; 2025-08-15)
PROC: 02HV33Z Insertion of Infusion Device into Superior Vena Cava, Percutaneous Approach (ICD-10-PCS; 2025-08-15)
PROC: B5181ZA Fluoroscopy of Superior Vena Cava using Low Osmolar Contrast, Guidance (ICD-10-PCS; 2025-08-15)
PROC: B548ZZA Ultrasonography of Superior Vena Cava, Guidance (ICD-10-PCS; 2025-08-15)
PROC: 5A1D70Z Performance of Urinary Filtration, Intermittent, Less than 6 Hours Per Day (ICD-10-PCS; 2025-08-17)
PROC: 5A1D70Z Performance of Urinary Filtration, Intermittent, Less than 6 Hours Per Day (ICD-10-PCS; 2025-08-18)
DX: J96.01 Acute respiratory failure with hypoxia (principal); G93.41 Metabolic encephalopathy; I21.4 Non-ST elevation (NSTEMI) myocardial infarction; J18.9 Pneumonia, unspecified organism; N17.0 Acute kidney failure with tubular necrosis; I50.21 Acute systolic (congestive) heart failure; K86.2 Cyst of pancreas; E87.0 Hyperosmolality and hypernatremia; I13.0 Hypertensive heart and chronic kidney disease with heart failure and stage 1 through stage 4 chronic kidney disease, or unspecified chronic kidney disease; N30.90 Cystitis, unspecified without hematuria; D53.9 Nutritional anemia, unspecified; N18.9 Chronic kidney disease, unspecified; E87.20 Acidosis, unspecified; I47.10 Supraventricular tachycardia, unspecified; I48.92 Unspecified atrial flutter; I16.9 Hypertensive crisis, unspecified; Z20.822 Contact with and (suspected) exposure to COVID-19; I16.0 Hypertensive urgency; R13.10 Dysphagia, unspecified; E87.6 Hypokalemia; I48.91 Unspecified atrial fibrillation; H40.9 Unspecified glaucoma; N26.1 Atrophy of kidney (terminal); N40.0 Benign prostatic hyperplasia without lower urinary tract symptoms; E61.1 Iron deficiency; K29.70 Gastritis, unspecified, without bleeding; K57.30 Diverticulosis of large intestine without perforation or abscess without bleeding; Z75.1 Person awaiting admission to adequate facility elsewhere; Z86.73 Personal history of transient ischemic attack (TIA), and cerebral infarction without residual deficits; Z93.1 Gastrostomy status
CPT/HCPCS: 31500; 31720; 36415; 36556; 36558; 36600; 70551; 71045; 71275; 74174; 76705; 76770; 77001; 80048; 80051; 80053; 80076; 80305; 80320; 81003; 82140; 82375; 82550; 82607; 82728; 82746; 82805; 82962; 83540; 83550; 83605; 83735; 83880; 84100; 84439; 84443; 84478; 84484; 85025; 85044; 85379; 86301; 86705; 86709; 87070; 87077; 87340; 87426; 88305; 90935; 93005; 93306; 93970; 93971; 94002; 94003; 94070; 94640; 94664; 94760; 95816; 97162; 98960; 99291; 99292; A4606; C1750; C1752; C1769; C1887; J0360; J0690; J0885; J1200; J1642; J1650; J2003; J2250; J2470; J2543; J2704; J2765; J3010; J3373; J3475; J3480; J3490; J7030; Q9967; G0480